=== PATIENT | female | born 1970 | race Native Hawaiian/Other Pacific Islander ===

== ENCOUNTER 2016-10-23 16:03 | Outpatient (CLI) | payer OTHER ==
--- NOTE | 2016-10-23 17:00 | DIAGNOSTIC IMAGING REPORT ---
PROCEDURE: XR KNEE 3 VIEWS - RIGHT INDICATION: BAKERS CYST TECHNIQUE: Three views. COMPARISON: None. FINDINGS: There is a patellofemoral osteoarthritis with the narrowing of the joint space laterally and spur formation. IMPRESSION: 1. Patellofemoral osteoarthritis.
== END 2016-10-23 23:00 ==
LOC: XR SRH 16:03
DX: M17.11 Unilateral primary osteoarthritis, right knee (principal)